=== PATIENT | male | born 1960 | race American Indian/Alaskan Native ===

== ENCOUNTER 2016-11-30 22:25 | Emergency (ER) | payer MEDICAID ==
[2016-11-30 23:01] VITALS: BP 137/74
--- NOTE | 2016-12-01 00:30 | EDM.PDOCBH ---
ED HPI GENERAL MEDICAL PROBLEM - General Chief Complaint: Drug or Alcohol Abuse Stated Complaint: MED[facility]ER[facility] FOR [facility] Time Seen by Provider: 11/30/16 23:34 Source of Information: Reports: Patient History Limitations: Reports: Intoxication - History of Present Illness INITIAL COMMENTS - FREE TEXT/NARRATIVE: This patient says that he has been drinking heavily for the past 4 days and he would like to go to detox. He said he got upset because his dog and for some reason he just started drinking and can't seem to stop. right shoulder Pain Score (Numeric/FACES): 6 - Related Data Allergies Allergy/AdvReac Type Severity Reaction Status Date / Time Penicillins Allergy Hives Verified 11/30/16 23:02 Home Meds: Home Meds Albuterol [IJD: Albuterol HFA] 1 puff INH Q4H PRN 11/30/16 [History] Aspirin [Adult Low Dose Aspirin EC] 81 mg PO DAILY 11/30/16 [History] Cholecalciferol (Vitamin D3) [Vitamin D3] 1,000 unit PO DAILY 11/30/16 [History] Folic Acid/Vitamin B Comp W-C [Dialyvite] 1 tab PO DAILY 11/30/16 [History] Hydrochlorothiazide 25 mg PO DAILY 11/30/16 [History] Lisinopril [Prinivil] 20 mg PO DAILY 11/30/16 [History] Pantoprazole [ProTONIX] 40 mg PO DAILY 11/30/16 [History] Sennosides [Senna] 1 tab PO BID 11/30/16 [History] Sertraline HCl 200 mg PO DAILY 11/30/16 [History] Tiotropium [Spiriva HandiHaler] 1 cap INH DAILY 11/30/16 [History] atorvaSTATin [Lipitor] 40 mg PO BEDTIME 11/30/16 [History] metFORMIN [Glucophage] 1,000 mg PO BIDMEALS 11/30/16 [History] Past Medical History Cardiovascular History: Reports: High Cholesterol, Hypertension Respiratory History: Reports: COPD Gastrointestinal History: Reports: GERD Psychiatric History: Reports: Addiction, Depression Endocrine/Metabolic History: Reports: Diabetes, Type II, Obesity/BMI 30+, Vitamin D Deficiency Hematologic History: Reports: None - Past Surgical History Cardiovascular Surgical History: Reports: None Respiratory Surgical History: Reports: None GI Surgical History: Reports: Colonoscopy Musculoskeletal Surgical History: Reports: Hip Replacement Social & Family History - Tobacco Use Smoking Status *Q: Current Every Day Smoker Years of Tobacco use: 35 Packs/Tins Daily: 0.2 - Caffeine Use Caffeine Use: Reports: Coffee - Recreational Drug Use Recreational Drug Type: Reports: Marijuana/Hashish Recreational Drug Use Frequency: Weekly ED ROS GENERAL - Review of Systems Review Of Systems: ROS reveals no pertinent complaints other than HPI. ED EXAM, BEHAVIORAL HEALTH - Physical Exam Exam: See Below Exam Limited By: No Limitations General Appearance: Alert, WD/WN, No Apparent Distress Eye Exam: Bilateral Eye: Normal Inspection Throat/Mouth: Normal Inspection Respiratory/Chest: No Respiratory Distress, Lungs Clear Cardiovascular: Regular Rate, Rhythm, No Murmur GI/Abdominal: Soft, Non-Tender Extremities: Normal Inspection Neurological: Alert, Normal Mood/Affect, CN II-XII Intact, Other (Seems mildly to moderately intoxicated) Psychiatric: Alert Skin Exam: Warm, Dry COURSE, BEHAVIORAL HEALTH COMP - Course Vital Signs: Last Vital Signs Temp 36.5 C 11/30/16 22:58 Pulse 76 11/30/16 22:58 Resp 18 11/30/16 22:58 BP 137/74 11/30/16 22:58 Pulse Ox 96 11/30/16 22:58 Orders, Labs, Meds: Active Orders 24 hr Category Date Time Status Saline Lock Insert [OM.PC] Urgent Oth 12/01/16 00:41 Ordered Laboratory Tests 11/30/16 11/30/16 11/30/16 Range/Units 22:40 22:40 22:40 WBC 4.2 L (4.5-11.0) K/uL RBC 3.93 L (4.30-5.90) M/uL Hgb 12.8 (12.0-15.0) g/dL Hct 38.5 L (40.0-54.0) % MCV 98 (80-98) fL MCH 33 H (27-31) pg MCHC 33 (32-36) % Plt Count 303 (150-400) K/uL Neut % (Auto) 44 (36-66) % Lymph % (Auto) 37 (24-44) % [place] % (Auto) 14 H (2-6) % Eos % (Auto) 2 (2-4) % Baso % (Auto) 3 H (0-1) % Sodium 146 (140-148) mmol/L Potassium 4.4 (3.6-5.2) mmol/L Chloride 107 (100-108) mmol/L Carbon Dioxide 31 (21-32) mmol/L Anion Gap 8.4 (5.0-14.0) mmol/L BUN 7 (7-18) mg/dL Creatinine 0.8 (0.8-1.3) mg/dL Est Cr Clr Drug Dosing 104.33 mL/min Estimated GFR (MDRD) > 60 (>60) Glucose 121 H (74-106) mg/dL Calcium 8.4 L (8.5-10.1) mg/dL Salicylates 2.2 (2.0-20.0) mg/dL Urine Opiates Screen (NEGATIVE) Ur Oxycodone Screen (NEGATIVE) Urine Methadone Screen (NEGATIVE) Ur Propoxyphene Screen (NEGATIVE) Acetaminophen 0.0 L (10.0-30.0) ug/mL Ur Barbiturates Screen (NEGATIVE) Ur Tricyclics Screen (NEGATIVE) Ur Phencyclidine Scrn (NEGATIVE) Ur Amphetamine Screen (NEGATIVE) U Methamphetamines Scrn (NEGATIVE) Urine MDMA Screen (NEGATIVE) U Benzodiazepines Scrn (NEGATIVE) U Cocaine Metab Screen (NEGATIVE) U Marijuana (THC) Screen (NEGATIVE) Ethyl Alcohol mg/dL 11/30/16 12/01/16 Range/Units 22:40 00:07 WBC (4.5-11.0) K/uL RBC (4.30-5.90) M/uL Hgb (12.0-15.0) g/dL Hct (40.0-54.0) % MCV (80-98) fL MCH (27-31) pg MCHC (32-36) % Plt Count (150-400) K/uL Neut % (Auto) (36-66) % Lymph % (Auto) (24-44) % [place] % (Auto) (2-6) % Eos % (Auto) (2-4) % Baso % (Auto) (0-1) % Sodium (140-148) mmol/L Potassium (3.6-5.2) mmol/L Chloride (100-108) mmol/L Carbon Dioxide (21-32) mmol/L Anion Gap (5.0-14.0) mmol/L BUN (7-18) mg/dL Creatinine (0.8-1.3) mg/dL Est Cr Clr Drug Dosing mL/min Estimated GFR (MDRD) (>60) Glucose (74-106) mg/dL Calcium (8.5-10.1) mg/dL Salicylates (2.0-20.0) mg/dL Urine Opiates Screen Negative (NEGATIVE) Ur Oxycodone Screen Negative (NEGATIVE) Urine Methadone Screen Negative (NEGATIVE) Ur Propoxyphene Screen Negative (NEGATIVE) Acetaminophen (10.0-30.0) ug/mL Ur Barbiturates Screen Negative (NEGATIVE) Ur Tricyclics Screen Negative (NEGATIVE) Ur Phencyclidine Scrn Negative (NEGATIVE) Ur Amphetamine Screen Negative (NEGATIVE) U Methamphetamines Scrn Negative (NEGATIVE) Urine MDMA Screen Negative (NEGATIVE) U Benzodiazepines Scrn Positive H (NEGATIVE) U Cocaine Metab Screen Negative (NEGATIVE) U Marijuana (THC) Screen Positive H (NEGATIVE) Ethyl Alcohol 387 mg/dL Medications Discontinued Medications Generic Name Dose Route Start Last Admin Trade Name Freq PRN Reason Stop Dose Admin Sodium Chloride 1,000 mls @ 999 mls/hr 12/01/16 00:45 12/01/16 00:54 Normal Saline IV 999 mls/hr ASDIRECTED ANAHI Administration Sodium Chloride 10 ml 12/01/16 00:41 12/01/16 00:54 Saline Flush FLUSH 10 ml ASDIRECTED PRN Administration Keep Vein Open Re-Assessment/Re-Exam: Plan manner is able to accept this patient. So he is medically cleared Departure - Departure Time of Disposition: 00:30 Disposition: Home, Self-Care 01 Condition: Fair Clinical Impression: Alcohol intoxication - Discharge Information Referrals: PCP,None [Primary Care Provider] - Forms: ED Department Discharge Additional Instructions: this patient is medically cleared for admission to an alcohol detox program - My Orders Last 24 Hours: My Active Orders 12/01/16 00:41 Saline Lock Insert [OM.PC] Urgent - Assessment/Plan Last 24 Hours: My Active Orders 12/01/16 00:41 Saline Lock Insert [OM.PC] Urgent
[2016-12-01] MEDS ORDERED: Sodium Chloride 0.9% 10 ML Syringe FLUSH PRN (00:41)
[2016-12-01] MEDS ORDERED: Sodium Chloride 0.9% 1,000 ML IV SCH (00:45)
== END 2016-12-01 02:09 | disposition home or self-care (01) ==
LOC: JP.ED 22:25
DX: F10.129 Alcohol abuse with intoxication, unspecified (principal); I10 Essential (primary) hypertension; E78.00 Pure hypercholesterolemia, unspecified; J44.9 Chronic obstructive pulmonary disease, unspecified; K21.9 Gastro-esophageal reflux disease without esophagitis; F32.9 Major depressive disorder, single episode, unspecified; E11.9 Type 2 diabetes mellitus without complications; E66.9 Obesity, unspecified; Z68.37 Body mass index [BMI] 37.0-37.9, adult; Z96.649 Presence of unspecified artificial hip joint; Z79.82 Long term (current) use of aspirin; Z79.899 Other long term (current) drug therapy; Z88.0 Allergy status to penicillin; Y90.8 Blood alcohol level of 240 mg/100 ml or more
CPT/HCPCS: 36415; 80048; 80305; 85025; 96360; 99283; G0480; J7040; J7050

== ENCOUNTER 2016-12-16 19:17 | Emergency (ER) | payer MEDICAID ==
--- NOTE | 2016-12-16 19:26 | EDM.PDOC ---
ED HPI GENERAL MEDICAL PROBLEM - General Chief Complaint: Laceration Stated Complaint: [facility] Time Seen by Provider: 12/16/16 19:20 Source of Information: Reports: Patient, EMS, Old Records History Limitations: Reports: No Limitations - History of Present Illness INITIAL COMMENTS - FREE TEXT/NARRATIVE: 56 yo male NA alcoholic fell onto and broke a glass table prior to arrival. Has been drinking heavily. Is asking about going to [facility]. Has been there many times. Lives with his sister. Here via EMS. Vitals stable en route. Has some lacerations from the fall. Onset: Today Onset Date: 12/16/16 Onset Time: 18:15 Duration: Minutes: Location: Reports: Back (L low back), Upper Extremity, Left (elbow) Quality: Reports: Sharp Severity: Moderate Improves with: Reports: Rest Worsens with: Reports: Other (Low back bleeds when pressure is taken off. ) Context: Reports: Trauma (fall onto a glass table that broke) Associated Symptoms: Reports: Other (intoxication) Treatments ACCOUNT CLASSIFICATION CLERK: Reports: Other (see below) (none) - Related Data Allergies Allergy/AdvReac Type Severity Reaction Status Date / Time Penicillins Allergy Hives Verified 12/16/16 19:27 Home Meds: Home Meds Albuterol [IJD: Albuterol HFA] 1 puff INH Q4H PRN 11/30/16 [History] Aspirin [Adult Low Dose Aspirin EC] 81 mg PO DAILY 11/30/16 [History] Cholecalciferol (Vitamin D3) [Vitamin D3] 1,000 unit PO DAILY 11/30/16 [History] Folic Acid/Vitamin B Comp W-C [Dialyvite] 1 tab PO DAILY 11/30/16 [History] Hydrochlorothiazide 25 mg PO DAILY 11/30/16 [History] Lisinopril [Prinivil] 20 mg PO DAILY 11/30/16 [History] Pantoprazole [ProTONIX] 40 mg PO DAILY 11/30/16 [History] Sennosides [Senna] 1 tab PO BID 11/30/16 [History] Sertraline HCl 200 mg PO DAILY 11/30/16 [History] Tiotropium [Spiriva HandiHaler] 1 cap INH DAILY 11/30/16 [History] atorvaSTATin [Lipitor] 40 mg PO BEDTIME 11/30/16 [History] metFORMIN [Glucophage] 1,000 mg PO BIDMEALS 11/30/16 [History] Past Medical History Cardiovascular History: Reports: High Cholesterol, Hypertension Respiratory History: Reports: COPD Gastrointestinal History: Reports: GERD Psychiatric History: Reports: Addiction, Depression Endocrine/Metabolic History: Reports: Diabetes, Type II, Obesity/BMI 30+, Vitamin D Deficiency Hematologic History: Reports: None - Past Surgical History Cardiovascular Surgical History: Reports: None Respiratory Surgical History: Reports: None GI Surgical History: Reports: Colonoscopy Musculoskeletal Surgical History: Reports: Hip Replacement Social & Family History - Tobacco Use Smoking Status *Q: Current Every Day Smoker Years of Tobacco use: 35 Packs/Tins Daily: 0.2 - Caffeine Use Caffeine Use: Reports: Coffee - Recreational Drug Use Recreational Drug Type: Reports: Marijuana/Hashish Recreational Drug Use Frequency: Weekly ED ROS GENERAL - Review of Systems Review Of Systems: See Below Constitutional: Reports: No Symptoms HEENT: Reports: No Symptoms Respiratory: Reports: No Symptoms Cardiovascular: Reports: No Symptoms GI/Abdominal: Reports: No Symptoms : Reports: No Symptoms Musculoskeletal: Reports: No Symptoms Skin: Reports: Wound (L elbow and L low back wounds) Neurological: Reports: Other (alcohol intoxication) Psychiatric: Reports: No Symptoms ED EXAM, SKIN/RASH Exam: See Below Exam Limited By: No Limitations General Appearance: Alert, WD/WN, No Apparent Distress Eye Exam: Bilateral Eye: Normal Inspection, PERRL Ears: Normal External Exam, Normal Canal, Hearing Grossly Normal, Normal TMs Nose: Normal Inspection, Normal Mucosa, No Blood Throat/Mouth: Normal Inspection, Normal Lips, Normal Teeth, Normal Oropharynx, Normal Voice, No Airway Compromise Head: Atraumatic, Normocephalic Neck: Normal Inspection, Supple Respiratory/Chest: No Respiratory Distress, Lungs Clear, Normal Breath Sounds, No Accessory Muscle Use Cardiovascular: Regular Rate, Rhythm, No Edema GI/Abdominal: Normal Bowel Sounds, Soft, Non-Tender, No Distention Back Exam: Normal Inspection. No: CVA Tenderness (R), CVA Tenderness (L) Extremities: Normal Inspection, Normal Range of Motion, Non-Tender, No Pedal Edema Neurological: Alert, Oriented, CN II-XII Intact, Normal Cognition, No Motor/ Sensory Deficits, Other (alcohol intoxication) Psychiatric: Normal Affect, Normal Mood Skin: Warm, Dry, Intact, Normal Color, No Rash Location, Skin: Back (Left low back), Upper Extremity, Left (elbow) Characteristics: Other (low back wound is a puncture, L elbow wound is a small laceration.) Associated features: Tenderness. No: Warmth, Swelling, Induration Lymphatic: No Adenopathy Course - Vital Signs Text/Narrative:: L low back puncture wound has an arteriolar bleed so a purse string suture and a simple suture of 4-0 Ethilon was used to achieve hemostasis. The L elbow 1.9 cm linear laceration was closed with 2 simple sutures of 4-0 Ethilon. Dressings were applied per RN. Last Recorded V/S: Last Vital Signs Temp 36.8 C 12/16/16 19:20 Pulse 79 12/16/16 19:20 Resp 15 12/16/16 19:20 BP 126/78 12/16/16 19:20 Pulse Ox 96 12/16/16 19:20 - Orders/Labs/Meds Labs: Laboratory Tests 12/16/16 12/16/16 12/16/16 Range/Units 19:29 19:29 19:29 WBC 6.5 (4.5-11.0) K/uL RBC 3.50 L (4.30-5.90) M/uL Hgb 11.4 L (12.0-15.0) g/dL Hct 33.8 L (40.0-54.0) % MCV 97 (80-98) fL MCH 33 H (27-31) pg MCHC 34 (32-36) % Plt Count 308 (150-400) K/uL Sodium 136 L (140-148) mmol/L Potassium 4.4 (3.6-5.2) mmol/L Chloride 102 (100-108) mmol/L Carbon Dioxide 26 (21-32) mmol/L Anion Gap 12.4 (5.0-14.0) mmol/L BUN 15 D (7-18) mg/dL Creatinine 0.8 (0.8-1.3) mg/dL Est Cr Clr Drug Dosing 100.94 mL/min Estimated GFR (MDRD) > 60 (>60) Glucose 131 H (74-106) mg/dL Calcium 7.5 L (8.5-10.1) mg/dL Total Bilirubin 0.2 (0.2-1.0) mg/dL AST 35 (15-37) U/L ALT 38 (12-78) U/L Alkaline Phosphatase 129 H (46-116) U/L Total Protein 7.3 (6.4-8.2) g/dL Albumin 3.4 (3.4-5.0) g/dL Globulin 3.9 H (2.3-3.5) g/dL Albumin/Globulin Ratio 0.9 L (1.2-2.2) Urine Color Urine Appearance Urine pH (4.5-8.0) Ur Specific [place] (1.008-1.030) Urine Protein (NEGATIVE) mg/dL Urine Glucose (UA) (NEGATIVE) mg/dL Urine Ketones (NEGATIVE) mg/dL Urine Occult Blood (NEGATIVE) Urine Nitrite (NEGAITVE) Urine Bilirubin (NEGATIVE) Urine Urobilinogen (NORMAL) mg/dL Ur Leukocyte Esterase (NEGATIVE) Urine RBC (0-5) Urine WBC (0-5) Ur Epithelial Cells Amorphous Sediment Urine Bacteria Urine Mucus Ethyl Alcohol 335 mg/dL 12/16/16 Range/Units 19:29 WBC (4.5-11.0) K/uL RBC (4.30-5.90) M/uL Hgb (12.0-15.0) g/dL Hct (40.0-54.0) % MCV (80-98) fL MCH (27-31) pg MCHC (32-36) % Plt Count (150-400) K/uL Sodium (140-148) mmol/L Potassium (3.6-5.2) mmol/L Chloride (100-108) mmol/L Carbon Dioxide (21-32) mmol/L Anion Gap (5.0-14.0) mmol/L BUN (7-18) mg/dL Creatinine (0.8-1.3) mg/dL Est Cr Clr Drug Dosing mL/min Estimated GFR (MDRD) (>60) Glucose (74-106) mg/dL Calcium (8.5-10.1) mg/dL Total Bilirubin (0.2-1.0) mg/dL AST (15-37) U/L ALT (12-78) U/L Alkaline Phosphatase (46-116) U/L Total Protein (6.4-8.2) g/dL Albumin (3.4-5.0) g/dL Globulin (2.3-3.5) g/dL Albumin/Globulin Ratio (1.2-2.2) Urine Color Yellow Urine Appearance Clear Urine pH 5.0 (4.5-8.0) Ur Specific [place] 1.015 (1.008-1.030) Urine Protein Negative (NEGATIVE) mg/dL Urine Glucose (UA) Normal (NEGATIVE) mg/dL Urine Ketones Negative (NEGATIVE) mg/dL Urine Occult Blood Negative (NEGATIVE) Urine Nitrite Negative (NEGAITVE) Urine Bilirubin Negative (NEGATIVE) Urine Urobilinogen Normal (NORMAL) mg/dL Ur Leukocyte Esterase Negative (NEGATIVE) Urine RBC Not seen (0-5) Urine WBC Not seen (0-5) Ur Epithelial Cells Rare Amorphous Sediment Not seen Urine Bacteria Few Urine Mucus Rare Ethyl Alcohol mg/dL Departure - Departure Time of Disposition: 20:30 Disposition: Home, Self-Care 01 Condition: Fair Clinical Impression: Alcoholism /alcohol abuse Laceration of elbow Qualifiers: Encounter type: initial encounter Laterality: left Qualified Code(s): S51.012A - Laceration without foreign body of left elbow, initial encounter Laceration of back Qualifiers: Encounter type: initial encounter Laterality: left Qualified Code(s): S21.212A - Laceration without foreign body of left back wall of thorax without penetration into thoracic cavity, initial encounter Alcohol intoxication Qualifiers: Complication of substance-induced condition: with unspecified complication Qualified Code(s): F10.929 - Alcohol use, unspecified with intoxication, unspecified - Discharge Information Referrals: PCP,None [Primary Care Provider] - Forms: ED Department Discharge
[2016-12-16 21:12] VITALS: BP 142/88
== END 2016-12-16 22:05 | disposition home or self-care (01) ==
LOC: JP.ED 19:17
DX: S51.012A Laceration without foreign body of left elbow, initial encounter (principal); S31.010A Laceration without foreign body of lower back and pelvis without penetration into retroperitoneum, initial encounter; F10.129 Alcohol abuse with intoxication, unspecified; Z88.0 Allergy status to penicillin; J44.9 Chronic obstructive pulmonary disease, unspecified; I10 Essential (primary) hypertension; F17.210 Nicotine dependence, cigarettes, uncomplicated; W18.02XA Striking against glass with subsequent fall, initial encounter; Y90.8 Blood alcohol level of 240 mg/100 ml or more
CPT/HCPCS: 12001; 36415; 80053; 81001; 85027; 99283; 99284; G0480

== ENCOUNTER 2017-04-14 01:18 | Emergency (ER) | payer MEDICAID, OTHER ==
--- NOTE | 2017-04-14 02:23 | EDM.PDOC ---
ED HPI GENERAL MEDICAL PROBLEM - General Chief Complaint: Drug or Alcohol Abuse Stated Complaint: [facility] Time Seen by Provider: 04/14/17 02:08 Source of Information: Reports: EMS, Old Records, RN Notes Reviewed History Limitations: Reports: Intoxication - History of Present Illness INITIAL COMMENTS - FREE TEXT/NARRATIVE: EMS arrival Chief complaint [place], intoxicated History of present illness 56-year-old male, with established history of alcoholism and several visits to emergency, neck Pain Score (Numeric/FACES): 7 - Related Data Allergies Allergy/AdvReac Type Severity Reaction Status Date / Time Penicillins Allergy Hives Verified 04/14/17 02:22 Home Meds: Home Meds Albuterol [IJD: Albuterol HFA] 1 puff INH Q4H PRN 11/30/16 [History] Aspirin [Adult Low Dose Aspirin EC] 81 mg PO DAILY 11/30/16 [History] Cholecalciferol (Vitamin D3) [Vitamin D3] 1,000 unit PO DAILY 11/30/16 [History] Folic Acid/Vitamin B Comp W-C [Dialyvite] 1 tab PO DAILY 11/30/16 [History] Hydrochlorothiazide 25 mg PO DAILY 11/30/16 [History] Lisinopril [Prinivil] 20 mg PO DAILY 11/30/16 [History] Pantoprazole [ProTONIX] 40 mg PO DAILY 11/30/16 [History] Sennosides [Senna] 8.6 mg PO BID 11/30/16 [History] Sertraline HCl 200 mg PO DAILY 11/30/16 [History] Tiotropium [Spiriva HandiHaler] 1 cap INH DAILY 11/30/16 [History] atorvaSTATin [Lipitor] 40 mg PO BEDTIME 11/30/16 [History] metFORMIN [Glucophage] 1,000 mg PO BIDMEALS 11/30/16 [History] Past Medical History Cardiovascular History: Reports: High Cholesterol, Hypertension Respiratory History: Reports: COPD Gastrointestinal History: Reports: GERD Psychiatric History: Reports: Addiction, Depression Endocrine/Metabolic History: Reports: Diabetes, Type II, Obesity/BMI 30+, Vitamin D Deficiency Hematologic History: Reports: None - Infectious Disease History Infectious Disease History: Reports: Mumps - Past Surgical History GI Surgical History: Reports: Colonoscopy Musculoskeletal Surgical History: Reports: Hip Replacement Social & Family History - Tobacco Use Smoking Status *Q: Current Every Day Smoker Years of Tobacco use: 15 Packs/Tins Daily: 1 - Caffeine Use Caffeine Use: Reports: Tea - Recreational Drug Use Recreational Drug Use: No Recreational Drug Type: Reports: Marijuana/Hashish Recreational Drug Use Frequency: Weekly ED ROS GENERAL - Review of Systems Review Of Systems: Unable To Obtain (ue to intoxication) ED EXAM, GENERAL - Physical Exam Exam: See Below Exam Limited By: Intoxication General Appearance: Lethargic, Other (slurred speech, he was on the floor when he went in the room, vital signs are stable although blood pressure was 97 systolic) Eye Exam: Bilateral Eye: Normal Inspection Ears: Normal External Exam, Hearing Grossly Normal Nose: Normal Inspection Throat/Mouth: Normal Inspection, Normal Voice Head: Other (abrasions on the left side of his forehead and on the left cheek) Neck: Supple, Full Range of Motion. No: Lymphadenopathy (R), Lymphadenopathy (L ) Respiratory/Chest: No Respiratory Distress, Lungs Clear, Chest Non-Tender Cardiovascular: Normal Peripheral Pulses, Regular Rate, Rhythm GI/Abdominal: Normal Bowel Sounds, Soft, Non-Tender Back Exam: Normal Inspection Extremities: Normal Inspection, Non-Tender, No Pedal Edema Neurological: No Motor/Sensory Deficits, Slow to Respond, Other (poor coordination and strength due to his intoxication but he was able to assist with getting himself off the floor, he had been incontinent of urine) Psychiatric: Other (apologetic about being here in about being on the floor) Skin Exam: Warm, Dry, Normal Color, No Rash, Other (facial abrasions) Course - Vital Signs Last Recorded V/S: Last Vital Signs Temp 35.1 C L 04/14/17 06:08 Pulse 70 04/14/17 06:08 Resp 17 04/14/17 06:08 BP 101/59 L 04/14/17 06:08 Pulse Ox 98 04/14/17 06:08 - Orders/Labs/Meds Orders: Active Orders 24 hr Category Date Time Status Head wo Cont [CT] Stat Exams 04/14/17 02:18 Taken ACETAMINOPHEN [CHEM] Stat Lab 04/14/17 06:52 Ordered DRUG SCREEN, URINE [URCHEM] Stat Lab 04/14/17 06:52 Uncollected ETHANOL BLOOD MEDICAL [CHEM] Stat Lab 04/14/17 06:52 Ordered HEPATIC FUNCTION PANEL,HFP [CHEM] Stat Lab 04/14/17 06:52 Ordered SALICYLATE [CHEM] Stat Lab 04/14/17 06:52 Ordered TSH ULTRASENSITIVE [CHEM] Stat Lab 04/14/17 06:52 Ordered UA W/MICROSCOPIC [URIN] Stat Lab 04/14/17 06:52 Uncollected Labs: Laboratory Tests 04/14/17 04/14/17 04/14/17 Range/Units 02:25 02:25 02:25 WBC 9.5 (4.5-11.0) K/uL RBC 4.66 (4.30-5.90) M/uL Hgb 11.9 L (12.0-15.0) g/dL Hct 37.1 L (40.0-54.0) % MCV 80 (80-98) fL MCH 26 L (27-31) pg MCHC 32 (32-36) % Plt Count 330 (150-400) K/uL Sodium 138 L (140-148) mmol/L Potassium 4.4 (3.6-5.2) mmol/L Chloride 100 (100-108) mmol/L Carbon Dioxide 28 (21-32) mmol/L Anion Gap 14.4 H (5.0-14.0) mmol/L BUN 15 (7-18) mg/dL Creatinine 1.0 (0.8-1.3) mg/dL Est Cr Clr Drug Dosing 86.18 mL/min Estimated GFR (MDRD) > 60 (>60) Glucose 108 H (74-106) mg/dL Calcium 8.1 L (8.5-10.1) mg/dL Ethyl Alcohol 341 mg/dL - Re-Assessments/Exams Free Text/Narrative Re-Assessment/Exam: 04/14/17 02:22 56-year-old intoxicated male, [place] and was [place] the floor here as well. Has some facial abrasions, does not seem to have any focal neurological deficits but is extremely intoxicated. Incontinent of urine. Labs ordered CT scan head ordered 04/14/17 06:48 Alcohol level CCCXLI, hemoglobin 11.9 CT head negative for acute findings Slept in emergency tonight Now that he's more alert he does want to go to detox Further lab tests will be done for discharge to detox 04/14/17 06:49 Departure - Departure Time of Disposition: 07:40 Disposition: DC/Tfer to Inpt Rehab Fac 62 Condition: Fair Clinical Impression: Acute alcoholic intoxication in alcoholism (blood level over 0.3) Qualifiers: Complication of substance-induced condition: uncomplicated Qualified Code(s): F10.220 - Alcohol dependence with intoxication, uncomplicated - Discharge Information Referrals: PCP,None [Primary Care Provider] - Forms: ED Department Discharge - My Orders Last 24 Hours: My Active Orders 04/14/17 02:18 Head wo Cont [CT] Stat 04/14/17 06:52 ACETAMINOPHEN [CHEM] Stat DRUG SCREEN, URINE [URCHEM] Stat ETHANOL BLOOD MEDICAL [CHEM] Stat HEPATIC FUNCTION PANEL,HFP [CHEM] Stat SALICYLATE [CHEM] Stat TSH ULTRASENSITIVE [CHEM] Stat UA W/MICROSCOPIC [URIN] Stat - Assessment/Plan Last 24 Hours: My Active Orders 04/14/17 02:18 Head wo Cont [CT] Stat 04/14/17 06:52 ACETAMINOPHEN [CHEM] Stat DRUG SCREEN, URINE [URCHEM] Stat ETHANOL BLOOD MEDICAL [CHEM] Stat HEPATIC FUNCTION PANEL,HFP [CHEM] Stat SALICYLATE [CHEM] Stat TSH ULTRASENSITIVE [CHEM] Stat UA W/MICROSCOPIC [URIN] Stat
[2017-04-14 06:22] VITALS: BP 101/59
== END 2017-04-14 10:43 ==
LOC: JP.ED 01:18
DX: F10.220 Alcohol dependence with intoxication, uncomplicated (principal); Y90.8 Blood alcohol level of 240 mg/100 ml or more; S00.81XA Abrasion of other part of head, initial encounter; F17.210 Nicotine dependence, cigarettes, uncomplicated; E11.9 Type 2 diabetes mellitus without complications; I10 Essential (primary) hypertension; E78.00 Pure hypercholesterolemia, unspecified; Z79.84 Long term (current) use of oral hypoglycemic drugs; Z88.0 Allergy status to penicillin; Z79.82 Long term (current) use of aspirin; W19.XXXA Unspecified fall, initial encounter
CPT/HCPCS: 36415; 70450; 80048; 80076; 84443; 85027; 99285; G0480; 99284

== ENCOUNTER 2017-05-04 01:30 | Emergency (ER) | payer SELFPAY ==
[2017-05-04 01:54] VITALS: BP 150/85
--- NOTE | 2017-05-04 02:12 | EDM.PDOC ---
ED HPI GENERAL MEDICAL PROBLEM - General Chief Complaint: Chest Pain Stated Complaint: MEDICAL VIA NORTH Time Seen by Provider: 05/04/17 02:05 Source of Information: Reports: Patient, RN Notes Reviewed History Limitations: Reports: No Limitations - History of Present Illness INITIAL COMMENTS - FREE TEXT/NARRATIVE: 56-year-old gentleman presents to the emergency department today via EMS services for acute onset of chest pain he has a known history of alcohol abuse and dependence he admitted to consuming 1 L of fire ball whiskey by himself after he did this sudden onset of chest pain by the time EMS services arrived his chest pain has resolved he did receive aspirin prior to arrival. At this time he has no complaints he admits that he would like to go to detoxification facility - Related Data Allergies Allergy/AdvReac Type Severity Reaction Status Date / Time Penicillins Allergy Hives Verified 04/14/17 02:22 Home Meds: Home Meds Albuterol [IJD: Albuterol HFA] 1 puff INH Q4H PRN 11/30/16 [History] Aspirin [Adult Low Dose Aspirin EC] 81 mg PO DAILY 11/30/16 [History] Cholecalciferol (Vitamin D3) [Vitamin D3] 1,000 unit PO DAILY 11/30/16 [History] Folic Acid/Vitamin B Comp W-C [Dialyvite] 1 tab PO DAILY 11/30/16 [History] Hydrochlorothiazide 25 mg PO DAILY 11/30/16 [History] Lisinopril [Prinivil] 20 mg PO DAILY 11/30/16 [History] Pantoprazole [ProTONIX] 40 mg PO DAILY 11/30/16 [History] Sennosides [Senna] 8.6 mg PO BID 11/30/16 [History] Sertraline HCl 200 mg PO DAILY 11/30/16 [History] Tiotropium [Spiriva HandiHaler] 1 cap INH DAILY 11/30/16 [History] atorvaSTATin [Lipitor] 40 mg PO BEDTIME 11/30/16 [History] metFORMIN [Glucophage] 1,000 mg PO BIDMEALS 11/30/16 [History] Past Medical History Cardiovascular History: Reports: Afib, High Cholesterol, Hypertension Respiratory History: Reports: COPD Gastrointestinal History: Reports: GERD Psychiatric History: Reports: Addiction, Depression Endocrine/Metabolic History: Reports: Diabetes, Type II, Obesity/BMI 30+, Vitamin D Deficiency - Infectious Disease History Infectious Disease History: Reports: Mumps - Past Surgical History GI Surgical History: Reports: Colonoscopy Musculoskeletal Surgical History: Reports: Hip Replacement Social & Family History - Tobacco Use Smoking Status *Q: Heavy Tobacco Smoker Years of Tobacco use: 30 Packs/Tins Daily: 1 - Caffeine Use Caffeine Use: Reports: Coffee, Energy Drinks - Recreational Drug Use Recreational Drug Use: Yes Recreational Drug Type: Reports: Marijuana/Hashish Recreational Drug Use Frequency: Weekly ED ROS GENERAL - Review of Systems Review Of Systems: See Below Constitutional: Reports: No Symptoms HEENT: Reports: No Symptoms Respiratory: Reports: No Symptoms Cardiovascular: Reports: Chest Pain (Now resolved) GI/Abdominal: Reports: No Symptoms : Reports: No Symptoms ED EXAM, GENERAL - Physical Exam Exam: See Below Exam Limited By: No Limitations General Appearance: Alert, WD/WN, No Apparent Distress Head: Atraumatic, Normocephalic Neck: Normal Inspection, Supple, Non-Tender, Full Range of Motion Respiratory/Chest: No Respiratory Distress, Lungs Clear, Normal Breath Sounds, No Accessory Muscle Use, Chest Non-Tender Cardiovascular: Regular Rate, Rhythm, No Murmur GI/Abdominal: Soft, Non-Tender Back Exam: Normal Inspection, Full Range of Motion. No: CVA Tenderness (R), CVA Tenderness (L) Extremities: Normal Inspection, Non-Tender, No Pedal Edema Course - Vital Signs Last Recorded V/S: Last Vital Signs Temp 97.8 F 05/04/17 01:39 Pulse 85 05/04/17 01:39 Resp 16 05/04/17 01:39 BP 150/85 H 05/04/17 01:39 Pulse Ox 96 05/04/17 01:39 - Orders/Labs/Meds Orders: Active Orders 24 hr Category Date Time Status Cardiac Monitoring [RC] .As Directed Care 05/04/17 02:08 Active EKG Documentation Completion [RC] ASDIRECTED Care 05/04/17 02:09 Active Chest 1V Frontal [CR] Stat Exams 05/04/17 02:09 Taken EKG 12 Lead [EK] Stat Ther 05/04/17 02:09 Ordered Labs: Laboratory Tests 05/04/17 05/04/17 05/04/17 Range/Units 02:10 02:10 02:10 WBC 6.1 (4.5-11.0) K/uL RBC 4.55 (4.30-5.90) M/uL Hgb 11.6 L (12.0-15.0) g/dL Hct 35.9 L (40.0-54.0) % MCV 79 L (80-98) fL MCH 26 L (27-31) pg MCHC 32 (32-36) % Plt Count 311 (150-400) K/uL Neut % (Auto) 52 (36-66) % Lymph % (Auto) 35 (24-44) % Coke % (Auto) 10 H (2-6) % Eos % (Auto) 3 (2-4) % Baso % (Auto) 1 (0-1) % Sodium 143 (140-148) mmol/L Potassium 4.2 (3.6-5.2) mmol/L Chloride 105 (100-108) mmol/L Carbon Dioxide 30 (21-32) mmol/L Anion Gap 8.1 (5.0-14.0) mmol/L BUN 11 (7-18) mg/dL Creatinine 0.8 (0.8-1.3) mg/dL Est Cr Clr Drug Dosing 100.94 mL/min Estimated GFR (MDRD) > 60 (>60) Glucose 128 H (74-106) mg/dL Calcium 8.5 (8.5-10.1) mg/dL Total Bilirubin 0.3 (0.2-1.0) mg/dL AST 47 H (15-37) U/L ALT 34 (12-78) U/L Alkaline Phosphatase 97 (46-116) U/L CK-MB (CK-2) 0.9 (0-3.6) mg/mL Troponin I < 0.017 (0.000-0.056) ng/mL Total Protein 7.3 (6.4-8.2) g/dL Albumin 3.6 (3.4-5.0) g/dL Globulin 3.7 H (2.3-3.5) g/dL Albumin/Globulin Ratio 1.0 L (1.2-2.2) Urine Color Urine Appearance Urine pH (4.5-8.0) Ur Specific [place] (1.008-1.030) Urine Protein (NEGATIVE) mg/dL Urine Glucose (UA) (NEGATIVE) mg/dL Urine Ketones (NEGATIVE) mg/dL Urine Occult Blood (NEGATIVE) Urine Nitrite (NEGAITVE) Urine Bilirubin (NEGATIVE) Urine Urobilinogen (NORMAL) mg/dL Ur Leukocyte Esterase (NEGATIVE) Urine RBC (0-5) Urine WBC (0-5) Ur Epithelial Cells Amorphous Sediment Urine Bacteria Urine Mucus Urine Opiates Screen (NEGATIVE) Ur Oxycodone Screen (NEGATIVE) Urine Methadone Screen (NEGATIVE) Ur Propoxyphene Screen (NEGATIVE) Ur Barbiturates Screen (NEGATIVE) Ur Tricyclics Screen (NEGATIVE) Ur Phencyclidine Scrn (NEGATIVE) Ur Amphetamine Screen (NEGATIVE) U Methamphetamines Scrn (NEGATIVE) Urine MDMA Screen (NEGATIVE) U Benzodiazepines Scrn (NEGATIVE) U Cocaine Metab Screen (NEGATIVE) U Marijuana (THC) Screen (NEGATIVE) Ethyl Alcohol 241 mg/dL 05/04/17 05/04/17 Range/Units 02:40 02:40 WBC (4.5-11.0) K/uL RBC (4.30-5.90) M/uL Hgb (12.0-15.0) g/dL Hct (40.0-54.0) % MCV (80-98) fL MCH (27-31) pg MCHC (32-36) % Plt Count (150-400) K/uL Neut % (Auto) (36-66) % Lymph % (Auto) (24-44) % Coke % (Auto) (2-6) % Eos % (Auto) (2-4) % Baso % (Auto) (0-1) % Sodium (140-148) mmol/L Potassium (3.6-5.2) mmol/L Chloride (100-108) mmol/L Carbon Dioxide (21-32) mmol/L Anion Gap (5.0-14.0) mmol/L BUN (7-18) mg/dL Creatinine (0.8-1.3) mg/dL Est Cr Clr Drug Dosing mL/min Estimated GFR (MDRD) (>60) Glucose (74-106) mg/dL Calcium (8.5-10.1) mg/dL Total Bilirubin (0.2-1.0) mg/dL AST (15-37) U/L ALT (12-78) U/L Alkaline Phosphatase (46-116) U/L CK-MB (CK-2) (0-3.6) mg/mL Troponin I (0.000-0.056) ng/mL Total Protein (6.4-8.2) g/dL Albumin (3.4-5.0) g/dL Globulin (2.3-3.5) g/dL Albumin/Globulin Ratio (1.2-2.2) Urine Color Yellow Urine Appearance Clear Urine pH 6.0 (4.5-8.0) Ur Specific [place] 1.020 (1.008-1.030) Urine Protein Negative (NEGATIVE) mg/dL Urine Glucose (UA) Normal (NEGATIVE) mg/dL Urine Ketones Negative (NEGATIVE) mg/dL Urine Occult Blood Negative (NEGATIVE) Urine Nitrite Negative (NEGAITVE) Urine Bilirubin Negative (NEGATIVE) Urine Urobilinogen Normal (NORMAL) mg/dL Ur Leukocyte Esterase Negative (NEGATIVE) Urine RBC 0-5 (0-5) Urine WBC 0-5 (0-5) Ur Epithelial Cells Few Amorphous Sediment Not seen Urine Bacteria Few Urine Mucus Not seen Urine Opiates Screen Negative (NEGATIVE) Ur Oxycodone Screen Negative (NEGATIVE) Urine Methadone Screen Negative (NEGATIVE) Ur Propoxyphene Screen Negative (NEGATIVE) Ur Barbiturates Screen Negative (NEGATIVE) Ur Tricyclics Screen Negative (NEGATIVE) Ur Phencyclidine Scrn Negative (NEGATIVE) Ur Amphetamine Screen Negative (NEGATIVE) U Methamphetamines Scrn Negative (NEGATIVE) Urine MDMA Screen Positive H (NEGATIVE) U Benzodiazepines Scrn Positive H (NEGATIVE) U Cocaine Metab Screen Negative (NEGATIVE) U Marijuana (THC) Screen Positive H (NEGATIVE) Ethyl Alcohol mg/dL Departure - Departure Time of Disposition: 03:55 Disposition: DC/Tfer to Inpt Rehab Fac 62 Reason for Transfer *Q: Other Condition: Fair Clinical Impression: Alcoholism /alcohol abuse Referrals: PCP,None [Primary Care Provider] - Forms: ED Department Discharge Additional Instructions: Recommend continue to refrain from alcohol, Please followup with your primary care provider in 3-5 days if not better, please call return to the emergency department with worsening of symptoms. - My Orders Last 24 Hours: My Active Orders 05/04/17 02:08 Cardiac Monitoring [RC] .As Directed 05/04/17 02:09 EKG Documentation Completion [RC] ASDIRECTED Chest 1V Frontal [CR] Stat EKG 12 Lead [EK] Stat - Assessment/Plan Last 24 Hours: My Active Orders 05/04/17 02:08 Cardiac Monitoring [RC] .As Directed 05/04/17 02:09 EKG Documentation Completion [RC] ASDIRECTED Chest 1V Frontal [CR] Stat EKG 12 Lead [EK] Stat Plan: Assessment Acuity = acute Site and laterality = chest pain complicated patient with acute alcohol intoxication Etiology = secondary to alcohol Manifestations = none Location of injury = Home Lab values = CBC, CMP, troponin, CK-MB all within normal limits alcohol is 241 urine drug screen reveals positive for benzodiazepines, MDMA and cannabis EKG demonstrates Q-wave in [address] elevations or depressions, chest x-ray I did review films myself I cannot appreciate any acute process, the official read from radiology is pending Plan I did review lab work chest x-ray EKG results with him plan is to discharge to [place] for detoxification This note was dictated using [employer] voice recognition software please call with any questions on syntax or [place].
--- NOTE | 2017-05-04 09:22 | CR ---
Mild cardiomegaly. Right lung is clear. Rotated view. Left midlung zone hazy density which may relate to chronic changes only versus infiltrate. Recommend 2 view radiograph follow-up.
== END 2017-05-04 04:10 ==
LOC: JP.ED 01:30
DX: R07.9 Chest pain, unspecified (principal); F10.229 Alcohol dependence with intoxication, unspecified; I10 Essential (primary) hypertension; E11.9 Type 2 diabetes mellitus without complications; J44.9 Chronic obstructive pulmonary disease, unspecified; Y90.8 Blood alcohol level of 240 mg/100 ml or more; Z88.0 Allergy status to penicillin; Z79.82 Long term (current) use of aspirin; Z79.899 Other long term (current) drug therapy; Z79.84 Long term (current) use of oral hypoglycemic drugs; Z72.0 Tobacco use
CPT/HCPCS: 36415; 71045; 80053; 80305; 81001; 82553; 84484; 85025; 93005; 99285; G0480; 93010

== ENCOUNTER 2017-05-20 00:32 | Emergency (ER) | payer SELFPAY ==
[2017-05-20] MEDS ORDERED: Albuterol/Ipratropium 3.0-0.5 MG/3 ML Neb Soln NEB ONE (01:16)
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
[2017-05-20 02:31] VITALS: BP 110/76
== END 2017-05-20 03:19 ==
LOC: JP.ED 00:32
DX: F10.230 Alcohol dependence with withdrawal, uncomplicated (principal); F17.210 Nicotine dependence, cigarettes, uncomplicated; E78.00 Pure hypercholesterolemia, unspecified; I10 Essential (primary) hypertension; E11.9 Type 2 diabetes mellitus without complications; Z88.0 Allergy status to penicillin; Z79.82 Long term (current) use of aspirin; Z79.899 Other long term (current) drug therapy; Y90.8 Blood alcohol level of 240 mg/100 ml or more
CPT/HCPCS: 36415; 80053; 80305; 81001; 84484; 85025; 94640; 99284; 99285; G0480; J7620

== ENCOUNTER 2017-05-25 03:16 | Emergency (ER) | payer SELFPAY ==
[2017-05-25 03:19] VITALS: BP 131/86
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
== END 2017-05-25 04:36 | disposition other institution (70) ==
LOC: JP.ED 03:16
DX: F10.120 Alcohol abuse with intoxication, uncomplicated (principal); J44.9 Chronic obstructive pulmonary disease, unspecified; I10 Essential (primary) hypertension; I48.91 Unspecified atrial fibrillation; E78.00 Pure hypercholesterolemia, unspecified; K21.9 Gastro-esophageal reflux disease without esophagitis; E11.9 Type 2 diabetes mellitus without complications; F17.210 Nicotine dependence, cigarettes, uncomplicated; Z79.84 Long term (current) use of oral hypoglycemic drugs; Z79.899 Other long term (current) drug therapy; Z79.82 Long term (current) use of aspirin; Z88.0 Allergy status to penicillin; Y90.8 Blood alcohol level of 240 mg/100 ml or more
CPT/HCPCS: 36415; 99285; G0480; 99283

== ENCOUNTER 2017-05-31 06:40 | Emergency (ER) | payer SELFPAY ==
[2017-05-31 07:41] VITALS: BP 114/68
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
== END 2017-05-31 09:45 | disposition other institution (70) ==
LOC: JP.ED 06:40
DX: F10.220 Alcohol dependence with intoxication, uncomplicated (principal); E78.00 Pure hypercholesterolemia, unspecified; I10 Essential (primary) hypertension; F17.210 Nicotine dependence, cigarettes, uncomplicated; Z88.0 Allergy status to penicillin; Z79.82 Long term (current) use of aspirin; Z79.899 Other long term (current) drug therapy; Y90.8 Blood alcohol level of 240 mg/100 ml or more
CPT/HCPCS: 36415; 84484; 99285; G0480; 99284

== ENCOUNTER 2017-06-06 04:04 | Emergency (ER) | payer SELFPAY ==
[2017-06-06 04:23] VITALS: BP 155/96
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
--- NOTE | 2017-06-07 09:15 | CR ---
Tibia Fibula Lt HISTORY: Pain COMPARISON: None FINDINGS: Tiny bony exostosis off the medial proximal tibia at the metaphyseal region measuring less than 1 cm. This is likely incidental. No acute fracture or acute bony destructive process seen.
== END 2017-06-06 08:17 ==
LOC: JP.ED 04:04
DX: F10.220 Alcohol dependence with intoxication, uncomplicated (principal); Y90.8 Blood alcohol level of 240 mg/100 ml or more; F17.210 Nicotine dependence, cigarettes, uncomplicated; E11.9 Type 2 diabetes mellitus without complications; E78.00 Pure hypercholesterolemia, unspecified; I10 Essential (primary) hypertension; J44.9 Chronic obstructive pulmonary disease, unspecified; Z79.899 Other long term (current) drug therapy; Z79.84 Long term (current) use of oral hypoglycemic drugs; Z88.2 Allergy status to sulfonamides; Z88.0 Allergy status to penicillin
CPT/HCPCS: 36415; 73590; 80053; 80305; 85025; 99284; G0480

== ENCOUNTER 2017-06-10 04:11 | Emergency (ER) | payer SELFPAY ==
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
[2017-06-10] MEDS ORDERED: Metoprolol Tartrate 5 MG/5 ML SDV IVPUSH ONE (05:08)
[2017-06-10] MEDS ORDERED: Metoprolol Tartrate 25 MG Tab PO ONE ×2 (05:26→05:54)
[2017-06-10 06:00] VITALS: BP 110/33
[2017-06-10] MEDS ORDERED: Sodium Chloride 0.9% 1,000 ML IV SCH (06:15)
== END 2017-06-10 07:20 | disposition other institution (70) ==
LOC: JP.ED 04:11
DX: I48.91 Unspecified atrial fibrillation (principal); F10.220 Alcohol dependence with intoxication, uncomplicated; I10 Essential (primary) hypertension; E78.00 Pure hypercholesterolemia, unspecified; E11.9 Type 2 diabetes mellitus without complications; F17.210 Nicotine dependence, cigarettes, uncomplicated; Z88.0 Allergy status to penicillin; Z79.82 Long term (current) use of aspirin; Z79.899 Other long term (current) drug therapy; Z79.84 Long term (current) use of oral hypoglycemic drugs; Y90.6 Blood alcohol level of 120-199 mg/100 ml
CPT/HCPCS: 36415; 82947; 84484; 96361; 96374; 99284; 99285; A9270; G0480; J7040; J3490

== ENCOUNTER 2017-06-21 08:28 | Emergency (ER) | payer MEDICAID, OTHER ==
[2017-06-21] MEDS ORDERED: Metoprolol Tartrate 5 MG/5 ML SDV IVPUSH ONE (09:37)
[2017-06-21] MEDS ORDERED: Aspirin 81 MG Tab.Chew PO ONE (09:38)
[2017-06-21] MEDS ORDERED: Sodium Chloride 0.9% 10 ML Syringe FLUSH PRN ×2 (09:38→13:53)
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
[2017-06-21] MEDS ORDERED: Diltiazem 25 MG/5 ML SDV IVPUSH ONE (10:23)
[2017-06-21] MEDS ORDERED: Diltiazem 100 MG in Sodium Chloride 0.9% 100 ML IV SCH (10:30)
--- NOTE | 2017-06-21 11:08 | CR ---
Moderate cardiomegaly. Interstitial thickening within the mid and lower lung zones may be chronic as they appear fairly similar compared to prior exam. Cannot exclude infectious etiology or edema.
[2017-06-21] MEDS ORDERED: Diltiazem 125 MG in Sodium Chloride 0.9% 100 ML IV SCH (11:15)
[2017-06-21] MEDS ORDERED: Lactated Ringers 1,000 ML IV ONE (13:45)
[2017-06-21] MEDS ORDERED: SODIUM CHLORIDE 0.9% IV ONE (13:53)
[2017-06-21] MEDS ORDERED: Iopamidol 755 Mg/ML 100 ML Bottle IV SCH (14:00)
--- NOTE | 2017-06-21 14:34 | CT ---
CTA chest. Total DLP 513. Findings: Mild cardiomegaly. Lymph node upper limits of normal at 9 mm short axis right paratracheal location. No PE. Coronary artery calcification. Bronchial wall thickening diffusely appears mild. Ret icular interstitial process within the periphery of the mid and lower lobes. No focal consolidation. Impression: 1. No PE. 2. Bronchial wall thickening can be seen in bronchitis. 3. Interstitial thickening likely is chronic and may indicate fibrotic change. Correlate clinically.
[2017-06-21] MEDS ORDERED: Rivaroxaban 10 MG Tab PO ONE (15:07)
[2017-06-21] MEDS ORDERED: Furosemide 20 MG Tab PO ONE (15:09)
[2017-06-21 15:33] VITALS: BP 118/81
== END 2017-06-21 15:44 ==
LOC: JP.ED 08:28
DX: I48.0 Paroxysmal atrial fibrillation (principal); E87.70 Fluid overload, unspecified; E78.00 Pure hypercholesterolemia, unspecified; I10 Essential (primary) hypertension; E11.9 Type 2 diabetes mellitus without complications; F17.210 Nicotine dependence, cigarettes, uncomplicated; Z88.0 Allergy status to penicillin; Z79.899 Other long term (current) drug therapy; Z79.82 Long term (current) use of aspirin; Z79.84 Long term (current) use of oral hypoglycemic drugs
CPT/HCPCS: 36415; 71045; 71275; 80053; 83735; 83880; 84484; 85025; 85379; 93005; 96361; 96374; 96375; 99285; A9270; J3490; J7030; J7050; J7120; 93010

== ENCOUNTER 2017-08-02 00:05 | Emergency (ER) | payer MEDICAID ==
[2017-08-02 00:28] VITALS: BP 133/91
[2017-08-02] MEDS ORDERED: Bacitracin Oint 1 GM U/D Packet TOP ONE (00:29)
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
[2017-08-02] MEDS ORDERED: Metoprolol Succinate 50 MG Tab.ER PO ONE (00:34)
== END 2017-08-02 02:07 | disposition other institution (70) ==
LOC: JP.ED 00:05
DX: I48.91 Unspecified atrial fibrillation (principal); F10.129 Alcohol abuse with intoxication, unspecified; Y90.8 Blood alcohol level of 240 mg/100 ml or more; I10 Essential (primary) hypertension; E11.9 Type 2 diabetes mellitus without complications; E66.9 Obesity, unspecified; F17.210 Nicotine dependence, cigarettes, uncomplicated; Z88.0 Allergy status to penicillin; Z79.82 Long term (current) use of aspirin; Z79.899 Other long term (current) drug therapy
CPT/HCPCS: 36415; 80048; 85025; 99285; A9270; G0480

== ENCOUNTER 2019-03-29 01:44 | Emergency (ER) | payer MEDICAID ==
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
[2019-03-29] MEDS ORDERED: metFORMIN 500 MG Tab PO ONE (04:23)
[2019-03-29] MEDS ORDERED: Sertraline 50 MG Tab PO ONE (04:24)
[2019-03-29] MEDS ORDERED: Metoprolol Succinate 50 MG Tab.ER PO ONE (04:25)
[2019-03-29] MEDS ORDERED: Aspirin 81 MG Tab.Chew PO ONE (04:25)
[2019-03-29] MEDS ORDERED: Thiamine 100 MG Tab PO ONE (04:25)
[2019-03-29] MEDS ORDERED: Hydrochlorothiazide 25 MG Tab PO ONE (04:26)
[2019-03-29] MEDS ORDERED: Lisinopril 10 MG Tab PO ONE (04:26)
[2019-03-29] MEDS ORDERED: Apixaban 5 MG Tab PO ONE (09:26)
[2019-03-29 10:13] VITALS: BP 129/74; PULSE 74
[2019-03-29] MEDS ORDERED: Pantoprazole 40 MG Tab.CR PO SCH (21:00)
== END 2019-03-29 10:45 | disposition other institution (70) ==
LOC: JP.ED 01:44
DX: F10.129 Alcohol abuse with intoxication, unspecified (principal); Y90.8 Blood alcohol level of 240 mg/100 ml or more; F12.10 Cannabis abuse, uncomplicated; I10 Essential (primary) hypertension; Z79.82 Long term (current) use of aspirin; Z88.0 Allergy status to penicillin
CPT/HCPCS: 36415; 80048; 80305; 80320; 99285; A9270; 99283; G0480

== ENCOUNTER 2019-08-23 01:08 | Emergency (ER) | payer MEDICAID, OTHER ==
[2019-08-23 01:23] VITALS: BP 161/93; PULSE 62
[2019-08-23] MEDS ORDERED: Albuterol/Ipratropium 4 GM Inhalation Spray INH PRN (01:44)
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
== END 2019-08-23 03:06 ==
LOC: JP.ED 01:08
DX: F10.129 Alcohol abuse with intoxication, unspecified (principal); I48.91 Unspecified atrial fibrillation; I25.10 Atherosclerotic heart disease of native coronary artery without angina pectoris; E78.00 Pure hypercholesterolemia, unspecified; I10 Essential (primary) hypertension; I25.2 Old myocardial infarction; J44.9 Chronic obstructive pulmonary disease, unspecified; K21.9 Gastro-esophageal reflux disease without esophagitis; E11.9 Type 2 diabetes mellitus without complications; E66.9 Obesity, unspecified; Z68.41 Body mass index [BMI] 40.0-44.9, adult; F32.9 Major depressive disorder, single episode, unspecified; Y90.8 Blood alcohol level of 240 mg/100 ml or more; Z88.0 Allergy status to penicillin; Z79.01 Long term (current) use of anticoagulants; Z79.899 Other long term (current) drug therapy; Z79.84 Long term (current) use of oral hypoglycemic drugs
CPT/HCPCS: 36415; 80053; 80305-QW; 80307; 85025; 94640; 99284; 99284-25